=== PATIENT | female | born 1985 | race Caucasian/White ===

== ENCOUNTER 2024-10-22 21:56 | Emergency (ER) | payer MEDICAID ==
[~2024-10-22] VITALS: Ht 160 cm; Wt 77.3 kg
[~2024-10-22 21:56] MED LIST: CYCL-1 PO
--- NOTE | 2024-10-22 22:04 | Physician Documentation ---
History of Present Illness ~ Chief Complaint: Abscess Stated Complaint: ABSCESS Time Seen by MD: 22:00 Primary Medical Doctor: NONE HPI 39-year-old female presents to the emergency department reporting that she has been dealing with a dental infection for nine days. She is currently on clindamycin. She went to urgent care today, and was told that she should come here. She denies chills or fever. However, on exam, she is only able to open her mouth a couple inches due to pain and swelling. She has obvious facial swelling that extends below the level of the jaw on the right. Tetanus Within 5 Years: No Medication Reconciliation Allergies: Coded Allergies: No Known Allergies (Unverified , 10/22/24) Scheduled PRN Cyclobenzaprine* (Cyclobenzaprine*), 1 TABLET PO Q8H PRN for muscle spasms Past Medical History Past Medical History: Arthritis Past Surgical History: no surgical history Alcohol Use: None Drug Use: none Review of Systems ROS As stated above in the HPI, otherwise all systems are reviewed and negative. Physical Exam Vital Signs: Temperature: 98.9, Source: Oral, Heart Rate: 107, Respiratory Rate: 18, BP: 130/72, Pulse Oximetry: 98, Weight: 77.270 Physical Exam General: Alert, no apparent distress. HEENT: PERRL, EOMI, no injection, moist mucous membranes. (+) trismus. Only able to open jaw a couple inches. Reports posterior bottom molar on right is infected but not possible to open jaw wide enough to evaluate.Significant right lower face swelling that extends below level of jaw on right. Neck: Full range of motion. Respiratory: Lungs clear, no respiratory distress. Chest: No accessory muscle use. Cardiovascular: Regular rate and rhythm, no murmurs. Gastrointestinal: Soft, nontender, nondistended. Bowels sounds present. Extremities: Normal range of motion, no deformity. Neurologic: Oriented x4. Psychiatric: Normal mood and affect. Skin: Normal color, warm and dry. No edema, no ecchymosis. Progress Results/Orders Results/Orders Medications Received in ER Medications (Trade) Dose Ordered Sig/[place] Route PRN Reason Start Time Stop Time Status Last Admin Dose Admin Ampicillin Sodium/ Sulbactam Sodium 100 ml @ 200 mls/hr ONCE ONCE IV 10/22/24 22:44 10/22/24 23:13 DC 10/23/24 00:03 200 MLS/HR Sodium Chloride 1,000 ml @ 1,000 mls/hr ONCE ONCE IV 10/22/24 22:55 10/22/24 23:54 DC 10/23/24 00:17 1,000 MLS/HR (Toradol injection) 15 mg ONCE ONCE IV 10/22/24 22:55 10/22/24 22:56 DC 10/23/24 00:37 15 MG Vital Signs 10/22/24 10/23/24 21:58 00:37 Temp 98.9 Pulse 107 Resp 18 15 B/P (MAP) 130/72 Pulse Ox 98 Laboratory Tests Test 10/22/24 22:35 White Blood Count 11.8 H Red Blood Count 4.23 Hemoglobin 11.9 L Hematocrit 35.0 Mean Corpuscular Volume 82.9 Mean Corpuscular Hemoglobin 28.1 Mean Corpuscular Hemoglobin Concent 33.9 Red Cell Distribution Width 14.1 Platelet Count 377 Mean Platelet Volume 7.3 L Neutrophils (%) (Auto) 74.0 Lymphocytes (%) (Auto) 14.5 L Monocytes (%) (Auto) 10.7 Eosinophils (%) (Auto) 0.4 Basophils (%) (Auto) 0.4 Neutrophils # (Auto) 8.7 H Lymphocytes # (Auto) 1.7 Monocytes # (Auto) 1.3 H Eosinophils # (Auto) 0.0 Basophils # (Auto) 0.0 CBC Comment Sodium Level 140 Potassium Level 3.5 Chloride Level 103 Carbon Dioxide Level 23.9 L Anion Gap 13 Blood Urea Nitrogen 13 Creatinine 0.87 Estimated GFR/1.73 m2 73 BUN/Creatinine Ratio 14.9 Glucose Level 95 Lactic Acid Level 0.6 Calcium Level 9.3 Magnesium Level 2.1 Albumin 4.0 Procalcitonin 0.07 Chemistry Comments Microbiology Date/Time Source Procedure Growth Status 10/22/24 23:10 Blood Iv Start Blood Culture - Preliminary NEGATIVE (LESS THAN 24 HOURS) Resulted EKG/XRAY/CT/US/VASC/MRI EKG : Additional Comment EKG interpreted by myself shows time of 08/06/2034, rate 104, sinus tachycardia, normal axis, no ST changes Chest X-Ray : Additional Comments Patient: ARCENIO HANKINS Medical Record: [id number] [facility] : 1985, Age: 39 Sex: Female Location: ER Patient Status: REG ER Service Date/Time: 10/22/242226 Ordering Physician: VALERIE LAWRENCE NP Exam: CHEST,SINGLE VIEW CHEST RADIOGRAPH Indication: SEPSIS Technique: Single frontal view of the chest was obtained Comparison: None FINDINGS: Lines and Tubes: None Lungs: Clear Pleura: No effusion. No pneumothorax. Cardiomediastinal contours: Unremarkable Bones: Unremarkable IMPRESSION: Clear lungs. Electronically Signed by:HAWA WATSON DO Date & Time: 10/22/242246 Dictated by: HAWA WATSON DO Dictation date and time: 10/22/242238 Primary Care Provider: SHYAM PRIMARY CARE PROVIDER cc: VALERIE LAWRENCE NP ~ CT : Impression Exam: CT FACIAL BONES/SOFT TISSUE EXAMINATION: Maxillofacial CT with contrast CLINICAL HISTORY: trismus, right posterior molar infection, facial swellilng COMPARISON: None TECHNIQUE: Thin section helical axial scans are obtained from below the mandible to above the frontal paranasal sinuses with intravenous contrast administration. Coronal and sagittal reformatted images are generated. One or more of the following radiation dose reduction techniques were used for this examination: automated exposure control, adjustment of the mA and/or kV according to patient size, use of iterative reconstruction technique. FINDINGS: Right facial soft tissue swelling / subcutaneous edema. Low-density collection with rim enhancement surrounding the right mandibular angle. This mainly involves the posterior and medial aspects of the right masseter muscle and measures approximately 4.5 cm in length and approximately 1.5 cm in width. Periapical lucency noted involving the posterior right mandibular molar tooth suggesting odontogenic etiology. No osseous destructive changes noted at this time. No definite extension into the neck or mediastinum at this time. The paranasal sinuses and mastoid air cells are clear. IMPRESSION: Right perimandibular, assistant paralegal space abscess as above. Medical Decision Making Differential Dx:Considerations: Include: Abscess, Bacteremia, Cellulitis, Erysipelas Additional Comment This is a 39-year-old female who reports 9 days of dental infection with facial swelling. Currently on clindamycin. No fevers or chills. Found to have trismus on exam. Septic workup pursued with negative lactic acid, negative procalcitonin. Blood cx x [address] IV[address] Mckeon receiving care of patient: Reviewed patient's location is examined patient. Patient has large abscess associated with her jaw has for CT read. This is outside of our scope and we do not have ENT or maxillofacial services here. I have spoken with emergency room doctor at [facility] who has graciously accepted patient for definitive management. Patient's blood pressures are reassuring Departure Disposition: 51 HOSPICE/MEDICAL FACILITY Impression: Primary Impression: Abscess Condition: Guarded Referrals: NO PRIMARY CARE PROVIDER (PCP) Signature Scribe Signature: no scribe Attestation: The note accurately reflects work and decisions made by me.Jefry Mckeon MD 10/23/24 04:05 The note accurately reflects work and decisions made by me.Valerie Bettencourt NP 10/22/24 22:32 VALERIE LAWRENCE NP Oct 22, 2024 22:04 JEFRY MCKEON MD Oct 23, 2024 03:13
[2024-10-22 22:43] LABS: BASOPHILS % (AUTO) 0.4 % (0-1); EOSINOPHILS % (AUTO) 0.4 % (0-6); HEMOGLOBIN 11.9 g/dl (12.0-16.0); LYMPHOCYTES # (AUTO) 1.7 X10'3 (1.1-4.8); LYMPHOCYTES % (AUTO) 14.5 % (21-51); MEAN CORPUSCULAR HEMOGLOBIN 28.1 PG (27.0-31.0); MEAN CORPUSCULAR HGB CONC 33.9 g/dL (33.0-36.5); MEAN CORPUSCULAR VOLUME 82.9 FL (78-98); MEAN PLATELET VOLUME 7.3 FL (7.4-10.4); MONOCYTES # (AUTO) 1.3 X10'3 (0-0.9); MONOCYTES % (AUTO) 10.7 % (2-12); NEUTROPHILS # (AUTO) 8.7 X10'3 (1.8-7.7); PLATELET COUNT 377 X10'3 (140-440); RED BLOOD COUNT 4.23 X10'6 (4.20-5.60); RED CELL DISTRIBUTION WIDTH 14.1 % (11.5-14.5); WHITE BLOOD COUNT 11.8 X10'3 (4.5-11.0)
--- NOTE | 2024-10-22 22:49 | RADIOLOGY REPORT ---
CHEST RADIOGRAPH Indication: SEPSIS Technique: Single frontal view of the chest was obtained Comparison: None FINDINGS: Lines and Tubes: None Lungs: Clear Pleura: No effusion. No pneumothorax. Cardiomediastinal contours: Unremarkable Bones: Unremarkable IMPRESSION: Clear lungs.
[2024-10-22 22:51] LABS: ANION GAP 13 (8-16); BLOOD UREA NITROGEN 13 MG/DL (7-18); BUN/CREATININE RATIO 14.9 (10.0-20.0); CALCIUM 9.3 MG/DL (8.5-10.1); CHLORIDE 103 MMOL/L (99-107); CREATININE 0.87 MG/DL (0.40-0.90); GLUCOSE 95 MG/DL (70-104); MAGNESIUM 2.1 MG/DL (1.5-2.4); POTASSIUM 3.5 MMOL/L (3.5-5.1); SODIUM 140 MMOL/L (135-145); TOTAL CARBON DIOXIDE 23.9 MMOL/L (24-32); eCRCL 73 ML/MIN; eGFR 73 ML/MIN
[2024-10-22] MEDS ORDERED: ampicillin/sulbac 3gm/NS 100ml 100 ML IV ONE (23:06)
[2024-10-22] MEDS ORDERED: iohexol 300mg/ml 100ml inj. ONE (23:15)
[2024-10-23] MEDS: ampicillin/sulbac 3gm/NS 100ml 100 ML IV ONE (00:03)
[2024-10-23] MEDS: normal saline 1000ml 1,000 ML IV ONE (00:17)
[2024-10-23] MEDS: ketorolac trometh 15mg/ml vial 15 MG/ML ML IV ONE (00:37)
--- NOTE | 2024-10-23 00:41 | RADIOLOGY REPORT ---
EXAMINATION: Maxillofacial CT with contrast CLINICAL HISTORY: trismus, right posterior molar infection, facial swellilng COMPARISON: None TECHNIQUE: Thin section helical axial scans are obtained from below the mandible to above the fronta l paranasal sinuses with intravenous contrast administration. Coronal and sagittal reformatted images are generated. One or more of the following radiation dose reduction techniques were used for this e xamination: automated exposure control, adjustment of the mA and/or kV according to patient size, use of iterative reconstruction technique. FINDINGS: Right facial soft tissue swelling / subcutaneous edema. Low-density collection with rim enhancement surrounding the right mandibular angle. This mainly invol ves the posterior and medial aspects of the right masseter muscle and measures approximately 4.5 cm i n length and approximately 1.5 cm in width. Periapical lucency noted involving the posterior right ma ndibular molar tooth suggesting odontogenic etiology. No osseous destructive changes noted at this time. No definite extension into the neck or mediastinum at this time. The paranasal sinuses and mastoid air cells are clear. IMPRESSION: Right perimandibular, hedis registered nurse rn space abscess as above.
[2024-10-23 04:39] VITALS: BP 145/92; PULSE 113; RESP 18; TEMP 98.5; O2SAT 99
--- NOTE | 2024-10-23 08:01 | ELECTROCARDIOGRAPH REPORT ---
[facility] Test Date: 2024-10-22 Test Time: 23:35:51 Pat Name: ARCENIO HANKINS Department: EMERGENCY ROOM Room: Gender: F [employer]creational [employer] Director: ZENY : 1985 Requested By: ANN-MARIE LAWRENCE Order Number: [id number] Reading MD: Dr. Tello Melendrez Measurements Intervals [place] Rate: 104 P: 59 [place]: 142 QRS: 69 QRSD: 88 T: -15 QT: 331 QTc: 436 Interpretive Statements Sinus tachycardia Nonspecific T abnormalities, anterior leads Electronically Signed On 10-23-2024 11:29:[address] Tello Melendrez Please click the below link to view image of tracing.
== END 2024-10-23 04:49 | disposition hospice, inpatient (51) ==
LOC: ER 21:57
DX: K04.7 Periapical abscess without sinus (principal); M19.90 Unspecified osteoarthritis, unspecified site
CPT/HCPCS: 36415; 70487; 71045; 80048; 83605; 83735; 84145; 85025; 87040; 93005; 96365; 96375; 99285; J0295; J1885; J7030; Q9967